=== PATIENT | female | born 1955 | race Caucasian/White ===

== ENCOUNTER → 2017-01-09 | Outpatient (CLI) | payer OTHER ==
--- NOTE | ~2017-01-09 | US85 ---
[facility] A Service of [facility] RADIOLOGY TEXT RESULTS PATIENT: GIANNA RATLIFF LOCATION: CNIV : 59 UNIT #: [id number] AGE: [address]: Paul Santana MD SEX: F ORDER DR: [id number] [facility] [address] [facility] [facility] [address]. [place], [place] [address] [id number] O MR#: [id number] Acc #: [id number] NAME: GIANNA RATLIFF : 1955 SEX: F STUDY DATE/TIME: 01/09/2017 14:25 UNIT: CNIV ROOM: STUDY DESCRIPTION: [facility] Attending Physician: Paul Santana M.D. Referring Physician: Paul Santana M.D. Ordering Physician: Paul Santana M.D. Primary Care Physician: Paul Santana M.D. MEDICAL IMAGING REPORT This report is preliminary unless electronic signature is present EXAM Left lower extremity venous Doppler. INDICATIONS Left leg swelling for 4 weeks. Patient said she started some water pills that have not helped. TECHNIQUE Acharya-scale, color Doppler and Spectral Doppler waveform analysis was performed through the left lower extremity. FINDINGS The examination is negative. There is no evidence of left lower extremity deep venous thrombus from the groin to the lower calf. Visualized greater saphenous vein is also patent. IMPRESSION Negative examination. No evidence of left lower extremity DVT. Dictated by... Naomi De La Fuente M.D. THIS IS AN ELECTRONICALLY VERIFIED REPORT Naomi De La Fuente M.D. at 01/10/2017 5:50 PM AFF/jt TD: 01/10/2017 16:17 JOB #: [id number] MEDICAL IMAGING REPORT [facility] A Service of [facility] RADIOLOGY TEXT RESULTS PATIENT: GIANNA RATLIFF LOCATION: CNIV : 59 UNIT #: [id number] AGE: [address]: Paul Santana MD SEX: F ORDER DR: Page 1 of 1 COPY
== END | disposition home or self-care (01) ==
LOC: CNIV 14:08
DX: M79.605 Pain in left leg (principal); M79.89 Other specified soft tissue disorders
CPT/HCPCS: 93971